=== PATIENT | male | born 1970 | race Caucasian/White ===

== ENCOUNTER 2021-07-04 10:10 | Emergency (ER) | payer MEDICAID ==
[2021-07-04] MEDS ORDERED: KETOROLAC 30 MG/ML VIAL IVP STA (12:49)
[2021-07-04] MEDS ORDERED: CYCLOBENZAPRINE 10 MG TABLET PO STA (12:50)
--- NOTE | 2021-07-04 12:51 | ED Physician Documentation ---
History of Present Illness - Stated complaint Stated Complaint: NECK PX - Chief complaint Chief Complaint: Heent - History obtained from History obtained from: Patient - Additonal information Additional information: This is a 50-year-old male who has no significant past medical history who presents with approximately 10 days of left-sided neck pain and swelling. He states that about 3 weeks ago he got 2 molars removed from his left upper jaw but had no pain or swelling with that. A week or so later he woke up 1 day with left-sided neck pain. He thought perhaps just a strain and he has been using ibuprofen 600 mg couple times a day and has scheduled a massage but states that the pain is getting so severe he cannot turn his head at all to the left and even minimally to the right, and he has difficulty swallowing. He denies pain with swallow but states he winces due to the difficulty. He has no history of neck injury, no history of neck pain or arthritic changes to his knowledge. He denies any fever, chills, cough or URI symptoms, chest pain, dyspnea, abdominal pain, nausea vomiting or diarrhea, extremity weakness or numbness. Review of Systems Ten Systems: 10 systems reviewed and negative Throat: reports: Other (Difficulty swallowing due to left neck pain but no specific sore throat) Musculoskeletal: reports: Neck pain PD PAST MEDICAL HISTORY - Past Medical History Past Medical History: No - Present Medications Home Medications: Ambulatory Orders Medication Instructions Recorded Confirmed Acetaminophen/Cod 300/30 [Tylenol 1 each PO Q4-6H #12 tablet 07/04/21 #3] Cyclobenzaprine [Flexeril] 10 mg PO TID PRN #20 tablet 07/04/21 predniSONE [Deltasone] 40 mg PO DAILY 5 Days #10 tablet 07/04/21 - Allergies Allergies/Adverse Reactions: Allergies Allergy/AdvReac Type Severity Reaction Status Date / Time No Known Drug Allergies Allergy Verified 07/04/21 10:31 PD ED PE NORMAL - Vitals Vital signs reviewed: Yes - General General: Alert and oriented X 3, No acute distress, Well developed/nourished - HEENT HEENT: Atraumatic, Moist mucous membranes, Pharynx benign, Dentition benign (Multiple fillings, no active abscesses or tooth decay noted) - Neck Neck: Other (There is mild left neck swelling, no palpable focal mass or fluid collection, patient is unable to turn his head to the left due to pain and has limited range of motion to the right. Pain with palpation along the anterior cervical lymph nodes and into the left trapezius. No mastoid tenderness, no ) - Cardiac Cardiac: RRR, No murmur - Respiratory Respiratory: No respiratory distress, Clear bilaterally - Abdomen Abdomen: Normal bowel sounds, Soft - Derm Derm: Normal color, Warm and dry, No rash - Extremities Extremities: No deformity, No tenderness to palpate, Normal ROM s pain, No edema - Neuro Neuro: Alert and oriented X 3 Eye Opening: Spontaneous Motor: Obeys Commands Verbal: Oriented GCS Score: 15 - Psych Psych: Normal mood, Normal affect Results - Vitals Vitals: Vital Signs - 24 hr 07/04/21 07/04/21 07/04/21 10:28 12:31 14:39 Temperature 36.0 C L 37.0 C Heart Rate 78 71 61 Respiratory 16 16 18 Rate Blood Pressure 135/86 H 130/82 H 116/94 H O2 Saturation 98 99 99 Oxygen O2 Source Room air - Labs Labs: Laboratory Tests 07/04/21 07/04/21 13:01 13:01 WBC 10.9 H RBC 4.80 Hgb 15.7 Hct 44.6 MCV 92.9 MCH 32.7 H MCHC 35.2 RDW 12.0 Plt Count 219 MPV 9.7 Neut # (Auto) 7.6 H Lymph # (Auto) 2.2 Meigs # (Auto) 0.7 Eos # (Auto) 0.2 Baso # (Auto) 0.1 Absolute Nucleated RBC 0.00 Nucleated RBC % 0.0 Sodium 136 Potassium 4.3 Chloride 103 Carbon Dioxide 24 Anion Gap 9.0 BUN 15 Creatinine 0.6 Estimated GFR (MDRD) 144 Glucose 118 H Calcium 9.4 PD MEDICAL DECISION MAKING - ED course Complexity details: reviewed results, re-evaluated patient, considered buddy hernandez, d/w patient ED course: This is a 50-year-old male who presented with neck pain for the past 10 days. He had decreased neck range of motion and concern for some possible left-sided neck swelling. He also had some painful swallow. He had not had a fever or other acute symptoms. He was managing at home w/ OTC pain meds without relief. We obtained labs to evaluate for possible infection as well as a CT neck soft tissue to evaluate for possible deep abscess or injury and this was reassuring. The patient had minimal relief with pain medication here but is driving therefore discharged home with a prescription for T3, per his request he prefer not to have [place] or oxycodone, and will try a short course of steroids as well has muscle relaxers. Patient cautioned on the use of these medications. If no improvement in the next few days or if at any point he develops a fever, headache, flulike symptoms or other new concerns patient advised to return to the ER. Departure - Departure Disposition: Home, Self Care Clinical Impression: Neck pain on left side Condition: Good Instructions: ED Neck Pain No Trauma Prescriptions: predniSONE [Deltasone] 40 mg PO DAILY 5 Days #10 tablet Cyclobenzaprine [Flexeril] 10 mg PO TID PRN #20 tablet PRN Reason: Spasms Acetaminophen/Cod 300/30 [Tylenol #3] 1 each PO Q4-6H #12 tablet Comments: You presented with neck pain primarily in the left side, and reduced range of motion. We did a work-up to evaluate for possible infection or Enlarged lymph nodes that were causing this but it was reassuring. Your exam is consistent with a muscle M. I am going to prescribe you a short course of steroids, pain medication and a muscle relaxer. The pain medication must Rexer should not be taken if you are driving or operating heavy machinery and can cause you to be extremely tired. Do not drive or take alcohol or other respiratory suppressants while on these medications. If you have no improvement in the next week, please follow-up with your primary care provider. If you develop a fever, increased pain, other new concerns return to the ER. Discharge Date/Time: 07/04/21 14:41
[2021-07-04] MEDS ORDERED: IOVERSOL 320 100 ML VIAL IVP ONE ×2 (13:06→14:07)
[2021-07-04 13:09] LABS: BASOPHILS # (AUTO) 0.1 10^3/uL (0.0-0.1); BASOPHILS % (AUTO) 0.6 %; EOSINOPHILS # (AUTO) 0.2 10^3/uL (0.0-0.7); EOSINOPHILS % (AUTO) 1.6 %; HCT - HEMATOCRIT 44.6 % (42.0-52.0); HGB - HEMOGLOBIN 15.7 g/dL (14.0-18.0); LYMPHOCYTES # (AUTO) 2.2 10^3/uL (1.5-3.5); LYMPHOCYTES % (AUTO) 20.4 %; MEAN CORPUSCULAR HEMOGLOBIN 32.7 pg (27.0-31.0); MEAN CORPUSCULAR HGB CONC 35.2 g/dL (32.0-36.0); MEAN CORPUSCULAR VOLUME 92.9 fL (80.0-94.0); MEAN PLATELET VOLUME 9.7 fL (7.4-11.4); MONOCYTES # (AUTO) 0.7 10^3/uL (0.0-1.0); MONOCYTES % (AUTO) 6.6 %; NEUTROPHILS # (AUTO) 7.6 10^3/uL (1.5-6.6); NEUTROPHILS % (AUTO) 70.3 %; PLT - PLATELET COUNT 219 10^3/uL (130-450); WHITE BLOOD COUNT 10.9 x10^3/uL (4.8-10.8)
[2021-07-04 13:14] LABS: CALCIUM 9.4 mg/dL (8.5-10.3); CREATININE 0.6 mg/dL (0.6-1.2); POTASSIUM 4.3 mmol/L (3.5-5.0)
--- NOTE | 2021-07-04 14:16 | CT Report ---
PROCEDURE: SOFT TISSUE NECK W INDICATIONS: left neck pain/swelling, ? mass or infection CONTRAST: IV CONTRAST: Optiray 320 ml: 100 PO CONTRAST: *NO PO CONTRAST TECHNIQUE: After the administration of intravenous contrast, 3.0 mm axial sections acquired from the sella to th e aortic arch. Additional oblique axial 3.0 mm sections acquired through the pharynx. 3 mm thick co bryce reformats were generated. For radiation dose reduction, the following was used: automated exp osure control, adjustment of mA and/or kV according to patient size. COMPARISON: None. FINDINGS: Image quality: There is streak artifact seen through the level of the shoulders. Lymph nodes: Borderline prominent lymph nodes can be seen on both sides of the neck, without focal en largement. Vessels: Visualized vasculature appears patent. Neck spaces: In this patient with this given history, scrutiny is given to left neck. No masses or f luid collections can be seen within the left neck. The oropharynx, nasopharynx, and pharynx demonstrate no mucosal lesions. The vocal cords, false voca l cords, pyriform sinuses, epiglottis, vallecula, and tongue base all appear normal. Glands: The parotid and submandibular glands appear normal. The thyroid is normal in size and there are no incidental findings. Miscellaneous: Visualized brain and orbits appear normal. Lung apices appear clear. Superficial so ft tissues appear normal. Bones: No suspicious bony lesions. There is near complete opacification seen of the left maxillary s inus. Milder mucosal thickening seen elsewhere within the paranasal sinuses. No significant abnormal fluid can be seen within the mastoid air cells or within the middle ear cavities. Mild to moderate lower cervical spine degenerative changes are seen. IMPRESSION: No masses or significant inflammatory changes are seen. No fluid collections are seen to suggest absc ess. Borderline prominent lymph nodes are seen on both sides of the neck, yet without elijah enlargement se en. Reviewed by: Giles Alfaro MD on 07/04/2021 1:15 PM SCOT Approved by: Giles Alfaro MD on 07/04/2021 1:15 PM SCOT Station ID: [id number]
[2021-07-04 14:41] VITALS: BP 116/94
== END 2021-07-04 14:41 | disposition home or self-care (01) ==
LOC: ED 10:10
DX: M54.2 Cervicalgia (principal)
CPT/HCPCS: 36415; 70491; 80048; 85025; 96374; 99284; A9270; Q9967

== ENCOUNTER 2023-03-08 15:27 | Outpatient (CLI) | payer OTHER ==
--- NOTE | 2023-03-08 17:18 | XRAY Report ---
PROCEDURE: Foot 3 View LT INDICATIONS: PAIN IN LFT FOOT TECHNIQUE: 3 views of the foot were acquired. COMPARISON: None. FINDINGS: Bones: Old healed fracture involving fifth metatarsal shaft is seen with chronic-appearing deformity . No gross acute left foot fracture or dislocation. Mild osteoarthritic changes are noted throughout left foot more notably at first MTP joint. No suspicious bony lesions. Soft tissues: No suspicious soft tissue calcifications or masses. IMPRESSION: Old healed fifth metatarsal shaft fracture. No acute left foot fracture or dislocation. Mild left ijeoma t osteoarthritis. Reviewed by: Alonso Joyner MD on 03/08/2023 5:17 PM PDT Approved by: Alonso Joyner MD on 03/08/2023 5:17 PM PDT Station ID: [id number]
== END 2023-03-08 15:28 | disposition home or self-care (01) ==
LOC: DI.S 15:27
PROVIDERS: ATTEND Emergency Medicine
DX: S92.352D Displaced fracture of fifth metatarsal bone, left foot, subsequent encounter for fracture with routine healing (principal); M19.072 Primary osteoarthritis, left ankle and foot

== ENCOUNTER 2023-03-29 08:30 | Outpatient (CLI) | payer OTHER ==
--- NOTE | 2023-03-29 14:03 | MRI Report ---
PROCEDURE: FOOT WO - LT INDICATIONS: PAIN IN LEFT FOOT TECHNIQUE: Noncontrast sagittal T1 spin echo and T2 fast spin echo with fat saturation, long-axis T1 spin echo a nd T2 fast spin echo with fat saturation, short-axis proton density fast spin echo and T2 fast spin e cho with fat saturation through the forefoot. COMPARISON: Left foot radiograph dated 03/08/2023. FINDINGS: Image quality: Excellent. Bones and joints: There is no acute fracture or dislocation. Old healed fracture involving fifth meta tarsal shaft is seen with chronic-appearing deformity. No evidence of metatarsal stress fractures. Mi ld osteoarthritic changes involving first MTP joint and articulation between the first metatarsal hea d and sesamoids. Mild edema involving medial and lateral sesamoids of great toe is seen without discr ete fracture line. No intraosseous lesions. Soft tissues: The visualized plantar foot muscles demonstrate normal signal and bulk. Visualized fl exor and extensor tendons appear intact, without tenosynovitis. No soft tissue ganglion cysts or bur sanaz fluid collections. Sagittal images demonstrate moderate grade partial thickness tear involving l ateral sesamoid phalangeal ligament of great toe. IMPRESSION: 1. Old healed fifth metatarsal shaft fracture. No acute fracture or dislocation. No metatarsal stress fracture. 2. Mild osteoarthritic changes in great toe and articulation between first metatarsal head and sesamo ids. Edema involving medial and lateral sesamoid bones, low-grade sesamoiditis cannot be excluded. Th ere is also moderate grade partial thickness tear involving lateral sesamoid phalangeal ligament at i ts size when insertion concerning for moderate grade turf toe injury. 3. Rest of the tendons and ligaments about midfoot and forefoot are intact. Reviewed by: Alonso Joyner MD on 03/29/2023 2:02 PM PDT Approved by: Alonso Joyner MD on 03/29/2023 2:02 PM PDT Station ID: [id number]
== END 2023-03-29 08:31 | disposition home or self-care (01) ==
LOC: DI 08:30
PROVIDERS: ATTEND Internal Medicine
DX: Z87.81 Personal history of (healed) traumatic fracture (principal); M19.072 Primary osteoarthritis, left ankle and foot; S93.692A Other sprain of left foot, initial encounter

== ENCOUNTER 2023-04-06 10:30 | Outpatient (CLI) | payer OTHER ==
--- NOTE | 2023-04-07 09:15 | XRAY Report ---
PROCEDURE: Foot 3 View BILAT INDICATIONS: BILAT FOOT PAIN TECHNIQUE: 3 views of each foot were acquired. COMPARISON: MRI left foot, 02/27/2023. X-ray left foot, 03/08/2023. FINDINGS: Right: No acute fractures or dislocations. Possible old fifth metatarsal shaft fracture. Pes planus . No suspicious bony lesions. [id number]-ce-[id number] osteoarthritic changes bilaterally. Calcaneal spurring . No suspicious soft tissue calcifications or masses. Left: No acute fractures or dislocations. Old fifth metatarsal shaft fracture with deformity. Pes pl anus. No suspicious bony lesions. Rpew-to-zpqylibc osteoarthritic changes bilaterally. Calcaneal spur ring. No suspicious soft tissue calcifications or masses. IMPRESSION: 1. Mild osteoarthritis bilaterally. 2. Calcaneal spurring. 3. Pes planus, right greater than left. 4. Old healed left fifth metatarsal shaft fracture. Reviewed by: Jorge Wheat MD on 04/07/2023 9:14 AM PDT Approved by: Jorge Wheat MD on 04/07/2023 9:14 AM PDT Station ID: [id number]
== END 2023-04-06 23:59 | disposition home or self-care (01) ==
LOC: DI.WOS 10:30
PROVIDERS: ATTEND Orthopaedic Surgery
DX: M19.071 Primary osteoarthritis, right ankle and foot (principal); M19.072 Primary osteoarthritis, left ankle and foot; M77.32 Calcaneal spur, left foot; M77.31 Calcaneal spur, right foot; M21.42 Flat foot [pes planus] (acquired), left foot; M21.41 Flat foot [pes planus] (acquired), right foot

== ENCOUNTER 2024-02-29 18:51 | Outpatient (CLI) | payer OTHER ==
[2024-02-29 20:04] LABS: BASOPHILS % (AUTO) 0.1 %; EOSINOPHILS % (AUTO) 0.2 %; HCT - HEMATOCRIT 37.8 % (42.0-52.0); HGB - HEMOGLOBIN 13.5 g/dL (14.0-18.0); LYMPHOCYTES # (AUTO) 1.2 10^3/uL (1.5-3.5); LYMPHOCYTES % (AUTO) 8.1 %; MEAN CORPUSCULAR HEMOGLOBIN 32.8 pg (27.0-31.0); MEAN CORPUSCULAR HGB CONC 35.7 g/dL (32.0-36.0); MEAN CORPUSCULAR VOLUME 91.7 fL (80.0-94.0); MEAN PLATELET VOLUME 9.5 fL (7.4-11.4); MONOCYTES # (AUTO) 0.2 10^3/uL (0.0-1.0); MONOCYTES % (AUTO) 1.5 %; NEUTROPHILS # (AUTO) 12.9 10^3/uL (1.5-6.6); NEUTROPHILS % (AUTO) 89.6 %; PLT - PLATELET COUNT 246 10^3/uL (130-450); RED BLOOD COUNT 4.12 10^6/uL (4.70-6.10); RED CELL DISTRIBUTION WIDTH 12.1 % (12.0-15.0); WHITE BLOOD COUNT 14.4 x10^3/uL (4.8-10.8)
[2024-02-29 20:29] LABS: ALBUMIN 4.3 g/dL (3.2-5.5); BILIRUBIN,TOTAL 0.5 mg/dL (0.2-1.0); CALCIUM 9.3 mg/dL (8.5-10.3); CREATININE 0.9 mg/dL (0.6-1.3); POTASSIUM 4.8 mmol/L (3.5-4.5); TOTAL PROTEIN 6.4 g/dL (6.4-8.9)
--- NOTE | 2024-03-01 16:47 | Ultrasound Report ---
PROCEDURE: Testicle INDICATIONS: TESTICULAR PAIN TECHNIQUE: Real-time scanning was performed of the scrotum and testicles, with image documentation. Color and p ulse Doppler interrogation was performed of both testicles. COMPARISON: None. FINDINGS: Right: Testicle is normal in size at 4.2 x 2.3 x 3 cm, and homogenous in echotexture. Epididymis is normal in overall size and morphology. No hydrocele. No varicoceles. Overlying scrotal skin is nor mal in thickness. Left: Testicle is normal in size at 4.3 x 2.3 x 3 cm, and homogeneous in echotexture. Epididymis is normal in overall size and morphology. No hydrocele. No varicoceles. Overlying scrotal skin is nor mal in thickness. Doppler: Color and pulse Doppler demonstrate normal and symmetric arterial flow in both testicles. Area of palpable abnormality demonstrates a 5 mm nonspecific hypoechoic subcutaneous focus in the rig ht groin with no internal vascularity. Right inguinal partially reducible fat-containing hernia with neck measuring 7 mm. IMPRESSION: 1.Normal testicular ultrasound. 2.Right groin area of palpable abnormality demonstrates a 5 mm nonspecific hypoechoic subcutaneous fo cus which is nonspecific. Findings may represent a sebaceous cyst. Correlate with physical exam. 3.Small fat-containing partially reducible right inguinal hernia. Reviewed by: Peter Jimenez MD on 03/01/2024 4:45 PM PDT Approved by: Peter Jimenez MD on 03/01/2024 4:45 PM PDT Station ID: [id number]
== END 2024-02-29 18:52 | disposition home or self-care (01) ==
LOC: DI 18:51
PROVIDERS: ATTEND Registered Nurse
DX: K40.90 Unilateral inguinal hernia, without obstruction or gangrene, not specified as recurrent (principal); R19.03 Right lower quadrant abdominal swelling, mass and lump; Z79.899 Other long term (current) drug therapy; Z13.9 Encounter for screening, unspecified
CPT/HCPCS: 36415; 80053; 85025

== ENCOUNTER 2024-03-03 10:36 | Outpatient (CLI) | payer OTHER ==
[2024-03-03 11:06] LABS: ALBUMIN 4.7 g/dL (3.2-5.5); ALKALINE PHOSPHATASE 41 IU/L (42-121); ALT ALANINE AMINOTRANSFERASE 30 IU/L (10-60); AST ASPARTATE AMINOTRANSFERASE 21 IU/L (10-42); BILIRUBIN,TOTAL 0.6 mg/dL (0.2-1.0); BUN - BLOOD UREA NITROGEN 11 mg/dL (6-20); CALCIUM 9.9 mg/dL (8.5-10.3); CARBON DIOXIDE - CO2 30 mmol/L (21-32); CHLORIDE 94 mmol/L (101-111); CREATININE 0.8 mg/dL (0.6-1.3); CRP - C-REACTIVE PROTEIN < 0.5 mg/dL (<0.5); GFR - MDRD 102 (>89); GLUCOSE 99 mg/dL (74-104); POTASSIUM 4.3 mmol/L (3.5-4.5); SODIUM 129 mmol/L (135-145); TOTAL PROTEIN 7.1 g/dL (6.4-8.9)
[2024-03-03 11:30] LABS: FERRITIN 62.1 ng/mL (23.9-336.2)
[2024-03-03 11:51] LABS: ESTIMATED AVERAGE GLUCOSE 111 mg/dL (70-100); HEMOGLOBIN A1c% 5.5 % (4.27-6.07)
== END 2024-03-03 10:37 | disposition home or self-care (01) ==
LOC: LAB 10:36
PROVIDERS: ATTEND Internal Medicine
DX: E87.1 Hypo-osmolality and hyponatremia (principal); D64.9 Anemia, unspecified
CPT/HCPCS: 36415; 80053; 82607; 82728; 83036; 86140

== ENCOUNTER 2024-04-19 17:30 | Outpatient (CLI) | payer OTHER ==
[2024-04-19 18:23] LABS: CALCIUM 9.5 mg/dL (8.5-10.3); CREATININE 1.2 mg/dL (0.6-1.3)
== END 2024-04-19 17:31 | disposition home or self-care (01) ==
LOC: LAB 17:30
PROVIDERS: ATTEND Internal Medicine
DX: E87.1 Hypo-osmolality and hyponatremia (principal)
CPT/HCPCS: 36415; 80048

== ENCOUNTER 2024-05-10 17:40 | Outpatient (CLI) | payer OTHER ==
[2024-05-10 18:05] LABS: BASOPHILS # (AUTO) 0.1 10^3/uL (0.0-0.1); BASOPHILS % (AUTO) 0.8 %; EOSINOPHILS # (AUTO) 0.2 10^3/uL (0.0-0.7); HCT - HEMATOCRIT 40.5 % (42.0-52.0); HGB - HEMOGLOBIN 14.7 g/dL (14.0-18.0); LYMPHOCYTES # (AUTO) 3.2 10^3/uL (1.5-3.5); LYMPHOCYTES % (AUTO) 28.2 %; MEAN CORPUSCULAR HGB CONC 36.3 g/dL (32.0-36.0); MEAN PLATELET VOLUME 8.9 fL (7.4-11.4); MONOCYTES # (AUTO) 0.6 10^3/uL (0.0-1.0); MONOCYTES % (AUTO) 5.6 %; NEUTROPHILS # (AUTO) 7.1 10^3/uL (1.5-6.6); PLT - PLATELET COUNT 226 10^3/uL (130-450); RED BLOOD COUNT 4.45 10^6/uL (4.70-6.10); WHITE BLOOD COUNT 11.3 x10^3/uL (4.8-10.8)
[2024-05-10 18:14] LABS: % IRON SATURATION 33 % (20-50); ALBUMIN 4.3 g/dL (3.2-5.5); ALBUMIN/GLOBULIN RATIO 1.7 (1.0-2.2); ALKALINE PHOSPHATASE 51 IU/L (42-121); ALT ALANINE AMINOTRANSFERASE 29 IU/L (10-60); AST ASPARTATE AMINOTRANSFERASE 22 IU/L (10-42); BILIRUBIN,TOTAL 0.4 mg/dL (0.2-1.0); BUN - BLOOD UREA NITROGEN 15 mg/dL (6-20); CALCIUM 9.2 mg/dL (8.5-10.3); CARBON DIOXIDE - CO2 31 mmol/L (21-32); CHLORIDE 97 mmol/L (101-111); CHOL/HDL RATIO 3.8 (<5.0); CHOLESTEROL 192 mg/dL; CREATININE 0.7 mg/dL (0.6-1.3); CRP - C-REACTIVE PROTEIN < 0.5 mg/dL (<0.5); GFR - MDRD 119 (>89); GLUCOSE 97 mg/dL (74-104); HDL CHOLESTEROL 50 mg/dL; IRON 103 ug/dL (50-212); POTASSIUM 3.9 mmol/L (3.5-4.5); SODIUM 133 mmol/L (135-145); TOTAL IRON BINDING CAPACITY 316 ug/dL (250-450); TOTAL PROTEIN 6.8 g/dL (6.4-8.9); TRANSFERRIN 226 mg/dL (203-362); TRIGLYCERIDES 452 mg/dL
[2024-05-10 18:28] LABS: THYROID STIMULATING HORMONE 0.73 uIU/mL (0.34-5.60)
[2024-05-10 18:36] LABS: FERRITIN 58.1 ng/mL (23.9-336.2)
[2024-05-10 20:57] LABS: ESTIMATED AVERAGE GLUCOSE 103 mg/dL (70-100); HEMOGLOBIN A1c% 5.2 % (4.27-6.07)
[2024-05-10 21:21] LABS: LDL CHOLESTEROL,DIRECT 112 mg/dL (75-193); LDLD/HDL RATIO 2.2 (<3.6)
== END 2024-05-10 17:41 | disposition home or self-care (01) ==
LOC: LAB 17:40
PROVIDERS: ATTEND Internal Medicine
DX: D64.9 Anemia, unspecified (principal); R53.83 Other fatigue; E87.1 Hypo-osmolality and hyponatremia; N50.811 Right testicular pain; G47.00 Insomnia, unspecified
CPT/HCPCS: 36415; 80053; 80061; 82728; 83036; 83540; 83721; 84402; 84403; 84439; 84443; 84466; 84481; 85025; 85651; 86140